=== PATIENT | male | born 1965 | race Two or more races ===

== ENCOUNTER 2021-02-18 07:54 | Emergency (ER) | payer SELFPAY ==
--- NOTE | 2021-02-18 08:29 | EDM.PDOC ---
ED HPI GENERAL MEDICAL PROBLEM - General Chief Complaint: Genitourinary Problem Stated Complaint: PAINFUL KNOT IN GROIN AREA Time Seen by Provider: 02/18/21 08:20 Source of Information: Reports: Patient, RN Notes Reviewed History Limitations: Reports: No Limitations - History of Present Illness INITIAL COMMENTS - FREE TEXT/NARRATIVE: 55-year-old gentleman presents emergency department today with a lump in his groin he is very concerned about it does not particular cause pain and there is no drainage from this area he just noticed it. He is from [place] will be traveling home in about a month - Related Data Allergies Allergy/AdvReac Type Severity Reaction Status Date / Time No Known Allergies Allergy Verified 02/18/21 08:11 Home Meds: Home Meds NK [No Known Home Meds] 02/18/21 [History] Past Medical History - Past Surgical History Musculoskeletal Surgical History: Reports: Shoulder Surgery, Other (See Below) Other Musculoskeletal Surgeries/Procedures:: HEEL Social & Family History - Tobacco Use Tobacco Use Status *Q: Current Every Day Tobacco User Years of Tobacco use: 30 Packs/Tins Daily: 0.5 ED ROS GENERAL - Review of Systems Review Of Systems: See Below Constitutional: Reports: No Symptoms Skin: Reports: Lumps ED EXAM, RENAL/ - Physical Exam Exam: See Below Text/Narrative:: Examination of the genital area Pérez stage V male who I do appreciate a 1 cm lump consistent with dermoid cyst in the area of the right groin it is nontender to the touch there is no erythema around this area Course - Vital Signs Last Recorded V/S: Last Vital Signs Temp 97.3 F 02/18/21 08:17 Pulse 68 02/18/21 08:17 Resp 14 02/18/21 08:17 BP 118/76 02/18/21 08:17 Pulse Ox 97 02/18/21 08:17 Departure - Departure Time of Disposition: 08:28 Disposition: Home, Self-Care 01 Condition: Good Clinical Impression: Dermoid cyst - Discharge Information Referrals: PCP,None [Primary Care Provider] - Additional Instructions: Follow-up with primary care upon return home for further evaluation, call return to the emergency department worsening symptoms Sepsis Event Note (ED) - Evaluation Sepsis Screening Result: No Definite Risk - Focused Exam Vital Signs: Vital Signs Temp Pulse Resp BP Pulse Ox 08/29/21 08:17 97.3 F 68 14 118/76 97 - Assessment/Plan Plan: Assessment Acuity = acute Site and laterality = dermoid cyst Etiology = unknown Manifestations = none Location of injury = Home Lab values = none Plan Follow-up primary care upon return home continue watchful waiting This note was dictated using [employer] voice recognition software please call with any questions on syntax or grammar.
== END 2021-02-18 09:03 | disposition home or self-care (01) ==
LOC: JP.ED 07:54
DX: D36.7 Benign neoplasm of other specified sites (principal); Z72.0 Tobacco use
CPT/HCPCS: 99282